=== PATIENT | male | born 1945 | race Caucasian/White ===

== ENCOUNTER 2017-12-19 11:29 | Emergency (ER) | payer MEDICARE, MEDICAID ==
[~2017-12-19] VITALS: Ht 157.5 cm; Wt 72.0 kg
[2017-12-19] MEDS ORDERED: IBUPROFEN 600MG TABLET PO ONE (12:45)
[2017-12-19 14:22] VITALS: BP 131/78
== END 2017-12-19 14:44 | disposition home or self-care (01) ==
LOC: ER 11:29
DX: S63.591A Other specified sprain of right wrist, initial encounter (principal); W10.8XXA Fall (on) (from) other stairs and steps, initial encounter; Y93.89 Activity, other specified; Y92.89 Other specified places as the place of occurrence of the external cause; I10 Essential (primary) hypertension; E11.9 Type 2 diabetes mellitus without complications; Z79.899 Other long term (current) drug therapy; Z88.0 Allergy status to penicillin
CPT/HCPCS: 73110; 99284